=== PATIENT | female | born 1975 | race Caucasian/White ===

== ENCOUNTER 2017-02-05 02:41 | Emergency (ER) | payer OTHER ==
[~2017-02-05] VITALS: Ht 172.7 cm; Wt 68.2 kg
[~2017-02-05 02:41] MED LIST: COL250 PO; DIPH25CA6 PO; HYDR4TAB PO; OXYC-284 PO; PANT40TA3 PO; TRAZ100T15 PO
[2017-02-05 02:44] VITALS: Ht 172.7 cm; Wt 68.2 kg
--- NOTE | 2017-02-05 03:33 | RADRPT ---
PROCEDURE: CT brain without contrast. CLINICAL INDICATION: Injury and pain. TECHNIQUE: CT scan of the brain was performed on a multi-detector high-resolution CT scanner. Co ntiguous axial images were obtained from the skull base to the vertex without intravenous contrast. Coronal and sagittal reformatted images were also obtained. Images were reviewed on the PACS works tation. One or more of the following dose reduction techniques were used: - Automated exposure control. - Adjustment of the mA and/or kV according to patient size. - Use of iterative reconstruction technique. Exam CTD/vol = 45.01 mGy. Total exam DLP = 720.23 mGy-cm. COMPARISON: None. FINDINGS: There is prior right temporal craniotomy with any encephalomalacia within the right temporal lobe ex tending to the right thalamus with small calcifications. The ventricles and cortical sulci are prom inent consistent with mild cerebral volume loss. There is no mass effect or midline shift. There is no intracranial hemorrhage or abnormal extra-axial collection. There is right facial soft tissue swelling and hematoma There is no evidence of fracture. Visualized paranasal sinuses and mastoid air cells are clear. IMPRESSION: No acute intracranial abnormality identified. Right facial soft tissue swelling and hematoma. Status post right temporal craniotomy with underlying encephalomalacia. Mild cerebral volume loss. .Tal Tapia MD, Date Time Electronically viewed and signed by .Tal Tapia MD, on 02/05/2017 03:33 .T/
--- NOTE | 2017-02-05 03:37 | RADRPT ---
PROCEDURE: CT of the orbits without contrast. CLINICAL INDICATION: Injury and pain. TECHNIQUE: CT scan of the orbits was performed on a multi-detector high-resolution CT scanner. Contiguous axial images were obtained without intravenous contrast. Coronal and sagittal reformatte d images were also obtained. Images were reviewed on the PACS workstation. One or more of the following dose reduction techniques were used: - Automated exposure control. - Adjustment of the mA and/or kV according to patient size. - Use of iterative reconstruction technique. Exam CTD/vol = 29.26 mGy. Total exam DLP = 401.30 mGy-cm. COMPARISON: None. FINDINGS: There is right facial soft tissue swelling and hematoma. There is no evidence of fracture. The julia al bones are intact. Bilateral orbital rims, zygoma and zygomatic arches are intact. The pterygoid plates are intact. Bilateral temporomandibular joints are within normal limits. Paranasal sinuses are clear without air fluid levels. Bilateral orbital globes are symmetric and within normal limits. The extraocular muscles are symmet amy and of normal caliber. Bilateral retrobulbar fat are clear. Bilateral optic nerves and superio r ophthalmic veins are within normal limits. There is prior right temporal craniotomy with underlying encephalomalacia. IMPRESSION: No evidence of fracture. Right facial soft tissue swelling and hematoma. .Tal Tapia MD, MD Date Time Electronically viewed and signed by .Tal Tapia MD, MD on 02/05/2017 03:37 .T/
--- NOTE | 2017-02-05 03:45 | ERD ---
ER Documentation Chief Complaint Date/Time DATE: 02/05/17 TIME: 03:44 Chief Complaint etoh, facial bruising s/p ground level fall HPI This is a 41-year-old female brought in by rescue after mechanical fall after drinking wine. Denies any fevers or chills. Denies any nausea vomiting. Denies any other current complaints. No loss of consciousness ROS All systems reviewed and are negative except as per history of present illness. Medications Home Meds Reported Medications Pantoprazole* (Protonix*) 40 Mg Tablet.dr, 40 MG PO DAILY 01/01/13 Diphenhydramine Hcl (Benadryl) 25 Mg Cap, 25 MG PO Y 01/01/13 Docusate Sodium (Colace) 250 Mg Cap, 250 MG PO DAILY 01/01/13 Trazodone Hcl* (Trazodone Hcl*) 100 Mg Tablet, 100 MG PO HS 01/01/13 Oxycodone Hcl-Acetaminophen* (Percocet*) 1 Tab Tablet, 1 TAB PO Q4 Y 01/01/13 Hydromorphone Hcl (Dilaudid) 4 Mg Tab, 4 MG PO Q4 Y 01/01/13 Allergies Allergies: Coded Allergies: No Known Drug Allergies (Verified Allergy, Unknown, 01/09/13) Uncoded Allergies: PLASTIC TAPES (Allergy, RASH, 01/01/13) PMhx/Soc History of Surgery: Yes (L Hip, R ELBOW) Anesthesia Reaction: No Hx Neurological Disorder: Yes (BRAIN TUMOR/ CA) Hx Respiratory Disorders: No Hx Cardiac Disorders: No Hx Psychiatric Problems: No Hx Miscellaneous Medical Probl: No Hx Alcohol Use: Yes Hx Substance Use: Yes (MARIJUANA) Hx Tobacco Use: Yes Smoking Status: Former smoker Physical Exam Vitals Vital Signs Date Time Temp Pulse Resp B/P Pulse Ox O2 Delivery O2 Flow Rate FiO2 02/05/17 03:08 98.0 80 17 131/90 98 Room Air 02/05/17 02:44 98.0 92 17 131/76 99 Physical Exam Const: [] Head: Atraumatic Eyes: Normal Conjunctiva ENT: Normal External Ears, Nose and Mouth. Neck: Full range of motion..~ No meningismus. Resp: Clear to auscultation bilaterally Cardio: Regular rate and rhythm, no murmurs Abd: Soft, non tender, non distended. Normal bowel sounds Skin: No petechiae or rashes Back: No midline or flank tenderness Ext: No cyanosis, or edema Neur: Awake and alert Psych: Normal Mood and Affect Procedures/MDM CT of the head and orbits are negative Medical decision making: This is a 41-year-old female who comes in essentially mechanical fall. She has no evidence of intracranial abnormality or fracture. She will be discharged home. She is advised to stop drinking. Departure Diagnosis: Primary Impression: Alcoholic intoxication Complication of substance-induced condition: uncomplicated Qualified Code: F10.120 - Alcoholic intoxication, uncomplicated Condition: Stable MACHO DE LA [place]GA Feb 05, 2017 03:45
[2017-02-05 03:59] VITALS: BP 123/89; PULSE 83; RESP 17; TEMP 98
== END 2017-02-05 03:59 | disposition home or self-care (01) ==
LOC: E/R 02:41
DX: F11.20 Opioid dependence, uncomplicated (principal); R40.2142 Coma scale, eyes open, spontaneous, at arrival to emergency department; R40.2252 Coma scale, best verbal response, oriented, at arrival to emergency department; R40.2362 Coma scale, best motor response, obeys commands, at arrival to emergency department; R51 Headache; Z87.891 Personal history of nicotine dependence
CPT/HCPCS: 70450; 70480; Z7502

== ENCOUNTER → 2019-03-27 | Outpatient (CLI) | payer MEDICAID, OTHER ==
[~2019-03-27] MED LIST changes: +TRA100 PO; -TRAZ100T15 PO
== END | disposition home or self-care (01) ==
LOC: C/S 18:16
PROVIDERS: ATTEND Psychiatry & Neurology Neurology
DX: M25.511 Pain in right shoulder (principal)
CPT/HCPCS: 73200